=== PATIENT | female | born 1970 | race African-American/Black ===

== ENCOUNTER 2019-08-14 21:27 | Emergency (ER) | payer SELFPAY ==
[~2019-08-14] VITALS: Ht 172.7 cm; Wt 68.0 kg
[2019-08-14] MEDS ORDERED: SODIUM CHLORIDE 0.9% 1,000 ML IV ONE (22:32)
[2019-08-14] MEDS ORDERED: LORAZEPAM 2MG/ML CPJ IV STA (22:32)
[2019-08-14] MEDS ORDERED: ONDANSETRON HCL 4MG/2ML INJ IV ONE (22:45)
[2019-08-14 22:59] LABS: BASOPHILS % 1.3 % (0.0-2.0); EOSINOPHILS % 0.6 % (0.0-5.0); HEMATOCRIT. 38.9 % (36.0-48.0); HEMOGLOBIN. 13.3 g/dL (12.0-16.0); LYMPHOCYTES % 42.7 % (20.0-50.0); MEAN CORPUSCULAR HEMOGLOBIN 37.1 pg (28.0-32.0); MEAN CORPUSCULAR VOLUME 108.7 fL (81.0-99.0); MEAN PLATELET VOLUME 12.1 fl (7.4-10.4); MONOCYTES % 11.1 % (2.0-8.0); NEUTROPHILS % 44.3 % (40.0-76.0); PLATELET 141 x1000/uL (130-400); RED BLOOD CELL COUNT 3.58 mill/uL (4.2-5.4); RED CELL DISTRIBUTION WIDTH 13.8 % (11.6-14.6)
[2019-08-14 23:04] LABS: CLARITY URINE CLOUDY (CLEAR); COLOR URINE YELLOW (YELLOW); KETONES URINE NEGATIVE (NEGATIVE); LEUKOCYTE ESTERASE URINE TRACE (NEGATIVE); NITRITE URINE NEGATIVE (NEGATIVE); OCCULT BLOOD URINE NEGATIVE (NEGATIVE); PROTEIN URINE NEGATIVE (NEGATIVE); SPECIFIC GRAVITY URINE 1.017 (1.005-1.030)
[2019-08-14 23:08] LABS: CHLORIDE 105 mEq/L (98-107)
[2019-08-14 23:13] LABS: ETHANOL BLOOD 59 mg/dL
[2019-08-14 23:17] LABS: *AMPHETAMINES SCREEN URINE NEGATIVE (NEGATIVE); *BARBITURATES SCREEN URINE NEGATIVE (NEGATIVE); *BENZODIAZEPINES SCREEN URINE NEGATIVE (NEGATIVE); CREATINE KINASE 196 IU/L (26-192)
[2019-08-14 23:18] LABS: *COCAINE SCREEN URINE NEGATIVE (NEGATIVE); METHADONE URINE SCREEN NEGATIVE (NEGATIVE); OPIATES URINE SCREEN NEGATIVE (NEGATIVE)
[2019-08-14 23:22] LABS: CANNABINOID URINE SCREEN PRESUMTIVE POSITIVE (NEGATIVE); PHENCYCLIDINE URINE SCREEN PRESUMTIVE POSITIVE (NEGATIVE)
[2019-08-14 23:30] LABS: HCG SCREEN NEGATIVE
[2019-08-15 06:21] VITALS: BP 102/58
== END 2019-08-15 06:40 | disposition home or self-care (01) ==
LOC: ER 21:27
DX: T40.991A Poisoning by other psychodysleptics [hallucinogens], accidental (unintentional), initial encounter (principal); Y92.89 Other specified places as the place of occurrence of the external cause; G93.40 Encephalopathy, unspecified; N39.0 Urinary tract infection, site not specified; F12.10 Cannabis abuse, uncomplicated
CPT/HCPCS: 36415; 80053; 80305; 80307; 80320; 80329; 81003; 82140; 82550; 84443; 84703; 85025; 93005; 96361; 96374; 96375; 99285; J2060; J2405; J7030; G0480

== ENCOUNTER 2024-03-02 21:20 | Emergency (ER) | payer OTHER ==
[~2024-03-02] VITALS: Ht 167.6 cm; Wt 65.0 kg
[2024-03-02 21:28] VITALS: TEMP 98.2; O2SAT 99
[2024-03-02] MEDS ORDERED: KETOROLAC 15MG/ML VIAL IM ONE (22:30)
[2024-03-02] MEDS ORDERED: LIDO700A15 TP (23:36)
[2024-03-02] MEDS ORDERED: NAPR-1176 MT (23:36)
[2024-03-03 00:33] VITALS: O2SAT 98
[2024-03-03 00:35] VITALS: BP 131/62; PULSE 80; RESP 16
[2024-03-03] MEDS: KETOROLAC 15MG/ML VIAL IM NR (00:35)
== END 2024-03-03 00:40 | disposition home or self-care (01) ==
LOC: ER 21:20
DX: D17.9 Benign lipomatous neoplasm, unspecified (principal); F16.10 Hallucinogen abuse, uncomplicated; Z79.1 Long term (current) use of non-steroidal anti-inflammatories (NSAID)
CPT/HCPCS: 99283; 96372; J1885; Z7610

== ENCOUNTER 2024-09-11 23:19 | Emergency (ER) | payer OTHER ==
[~2024-09-11] VITALS: Ht 165.1 cm; Wt 50.0 kg
[~2024-09-11 23:19] MED LIST: LIDO700A15 TP; NAPR-1176 MT
[2024-09-11 23:30] VITALS: O2SAT 100
[2024-09-11 23:50] VITALS: BP 122/78; PULSE 100; RESP 16; TEMP 37; O2SAT 100
[2024-09-12] MEDS: CYCLOBENZAPRINE 10MG TABLET PO ONE (03:42)
[2024-09-12] MEDS: KETOROLAC 30MG/ML VIAL IM ONE (03:42)
[2024-09-12] MEDS: LIDOCAINE 5% PATCH TOP SCH (03:42)
[2024-09-12] MEDS ORDERED: CYCL10TA21 MT (04:13)
[2024-09-12] MEDS ORDERED: LIDO700A15 TP (04:13)
[2024-09-12] MEDS ORDERED: KETO10TA2 MT (04:13)
== END 2024-09-12 04:54 | disposition home or self-care (01) ==
LOC: ER 23:19
DX: M25.511 Pain in right shoulder (principal); M54.2 Cervicalgia; R51.9 Headache, unspecified; Z79.899 Other long term (current) drug therapy; Z79.1 Long term (current) use of non-steroidal anti-inflammatories (NSAID); V49.40XA Driver injured in collision with unspecified motor vehicles in traffic accident, initial encounter; Y93.89 Activity, other specified; Y92.89 Other specified places as the place of occurrence of the external cause; Y99.8 Other external cause status
CPT/HCPCS: 99283; 96372; J1885; A4565

== ENCOUNTER 2024-11-02 19:33 | Emergency (ER) | payer OTHER ==
[~2024-11-02] VITALS: Ht 162.6 cm; Wt 64.0 kg
[~2024-11-02 19:33] MED LIST changes: +CYCL10TA21 MT; +KETO10TA2 MT; +LIDO-53 TP; -LIDO700A15 TP
[2024-11-02 19:40] VITALS: O2SAT 98
[2024-11-03 03:37] VITALS: BP 106/61; PULSE 85; RESP 19; O2SAT 98
== END 2024-11-03 04:01 | disposition home or self-care (01) ==
LOC: ER 19:33
DX: S00.03XA Contusion of scalp, initial encounter (principal); R51.9 Headache, unspecified; I10 Essential (primary) hypertension; J45.909 Unspecified asthma, uncomplicated; Z79.1 Long term (current) use of non-steroidal anti-inflammatories (NSAID); W22.8XXA Striking against or struck by other objects, initial encounter; Y93.89 Activity, other specified; Y92.89 Other specified places as the place of occurrence of the external cause; Y99.8 Other external cause status
CPT/HCPCS: 70450; 70486; 72125; 99285; Z7610; A4606